=== PATIENT | male | born 1960 | race Hispanic/Latino ===

== ENCOUNTER 2025-03-28 06:10 | Day surgery (SDC) | payer MEDICARE ==
[2025-03-25 12:18] LABS: BASOPHILS % 0.8 % (0.0-1.0); EOSINOPHILS % 0.8 % (0.0-6.0); LYMPHOCYTES % 14.2 % (18.0-39.1); MONOCYTES % 9.2 % (4.4-11.3); NEUTROPHILS % 73.4 % (38.7-80.0); RED CELL DISTRIBUTION WIDTH 12.5 % (11.7-14.4)
[2025-03-25 12:26] LABS: INR 1.06
[2025-03-25 12:37] LABS: CHOL/HDL RATIO 2.3 (3.9-4.7); EST GLOMERULAR FILTRATION RATE 98.0 ML/MIN (>=60); LDL CHOLESTEROL 40.0 MG/DL (60-130)
[2025-03-25 12:40] LABS: CORONAVIRUS COVID-19 AG NEGATIVE (NEGATIVE)
[2025-03-28] VITALS (12 sets, daily range): BP systolic 103–144; BP diastolic 64–84; PULSE 63–86; RESP 15–21; TEMP 97.1–97.6; O2SAT 95–100
[~2025-03-28] VITALS: Ht 160 cm; Wt 84.4 kg
[~2025-03-28 06:10] MED LIST: AMLODIPINE BESY10 MG PO; ASPIRIN CHEW81 MG PO; HYDROCHLOROTHIA25 MG PO; LIPITOR20 MG PO; LISINOPRIL20 MG PO; MELOXICAM7.5 MG PO; METFORMIN HCL500 MG PO; METOPROLOL SUCC50 MG PO; TRADJENTA5 MG PO
[2025-03-28] MEDS ORDERED: SODIUM CHLORIDE 0.9% 1000ML 1,000 ML ONE ×2 (07:16→08:50)
[2025-03-28] MEDS ORDERED: VERAPAMIL HCL 2.5 MG/ML 2 ML VIAL ONE (08:10)
[2025-03-28] MEDS ORDERED: HEPARIN SOD (PORCINE) 1000 UNIT/ML 30ML ONE (08:10)
[2025-03-28] MEDS ORDERED: LIDOCAINE HCL 2% LOCAL 20 ML VIAL ONE (08:10)
[2025-03-28] MEDS ORDERED: HEPARIN SOD/SOD CHLORIDE 2,000 ML ONE (08:11)
[2025-03-28] MEDS ORDERED: IOPAMIDOL 370 MG/ML 100 ML INFUS..BTL INJ ONE (08:11)
[2025-03-28] MEDS ORDERED: FENTANYL CITRATE/PF 100MCG/2 ML INJ ONE (08:22)
[2025-03-28] MEDS ORDERED: MIDAZOLAM HCL 2 MG/2 ML VIAL ONE (08:22)
[2025-03-28] MEDS ORDERED: METOPROLOL TARTRATE INJ 1 MG/ML VIAL ONE (08:55)
== END 2025-03-28 11:30 | disposition home or self-care (01) ==
LOC: CATH LAB 06:10
PROVIDERS: ATTEND Internal Medicine Cardiovascular Disease
DX: I25.110 Atherosclerotic heart disease of native coronary artery with unstable angina pectoris (principal); I25.84 Coronary atherosclerosis due to calcified coronary lesion; I10 Essential (primary) hypertension; E11.9 Type 2 diabetes mellitus without complications; E78.5 Hyperlipidemia, unspecified; M19.90 Unspecified osteoarthritis, unspecified site; Z79.84 Long term (current) use of oral hypoglycemic drugs; Z79.82 Long term (current) use of aspirin; Z79.899 Other long term (current) drug therapy; Z91.048 Other nonmedicinal substance allergy status; Z68.33 Body mass index [BMI] 33.0-33.9, adult; Z82.49 Family history of ischemic heart disease and other diseases of the circulatory system
CPT/HCPCS: 36415 ×2; 76937; 80053; 80061; 82948; 85025; 85610; 85730; 87426; 93005; 93458; C1769; C1887; C1894; J1644; J2003; J2250; J3010; J7030; Q9967; 75605; 75756; 99152